=== PATIENT | female | born 1940 | race Two or more races ===

== ENCOUNTER → 2016-09-23 | Outpatient (CLI) | payer MEDICARE, OTHER ==
[2016-09-23 12:28] LABS: Basophils # (auto) 0 uL; Basophils % (auto) 0.7 % (0.0-2.0); DEFINITIVE VIEW TRANSMISSION; Eosinophils # (auto) 0 uL; Eosinophils % (auto) 1.6 % (0.0-7.0); Hematocrit 37.8 % (36.0-46.0); Hemoglobin 12.3 g/dL (12.2-16.2); Lymphocytes # (auto) 0.3 uL; Lymphocytes % (auto) 13.7 % (10.0-50.0); Mean Corpuscular Hemoglobin 25.8 pg (28.0-32.0); Mean Corpuscular Hgb Conc. 32.5 g/dL (32.0-36.0); Mean Corpuscular Volume 79.4 fL (80.0-100.0); Mean Platelet Volume 9.5 fL (7.4-10.4); Monocytes # (auto) 0.3 uL; Monocytes % (auto) 10.7 % (0.0-12.0); Neutrophils # (auto) 1.9 uL; Neutrophils % (auto) 73.3 % (37.0-80.0); Platelet Count (auto) 301 10^3/uL (140-450); Red Cell Distribution Width 15.2 % (11.6-16.0); White Blood Cell 2.5 10^3/uL (4.4-10.8)
[2016-09-23 12:45] LABS: Urine Bilirubin Negative (Negative); Urine Blood Negative /uL (Negative); Urine Color Yellow (Yellow); Urine Glucose Normal (Normal); Urine Ketone Negative (Negative); Urine Nitrite Negative (Negative); Urine Urobilinogen Normal (Negative)
[2016-09-23 12:53] LABS: Albumin 3.9 g/dL (3.4-5.0); BUN/Creatinine Ratio 15.9; Bilirubin, Direct 0.1 mg/dL (0-0.2); Bilirubin, Total 0.5 mg/dL (0.2-1.0); Calcium 8.9 mg/dL (8.5-10.1); Potassium 3.8 mmol/L (3.5-5.1); Total Protein 7.2 g/dL (6.4-8.2)
== END | disposition home or self-care (01) ==
LOC: LAB 08:58
PROVIDERS: ATTEND Internal Medicine Cardiovascular Disease
DX: I10 Essential (primary) hypertension (principal); E78.00 Pure hypercholesterolemia, unspecified; K74.1 Hepatic sclerosis; E11.9 Type 2 diabetes mellitus without complications; E03.9 Hypothyroidism, unspecified; D64.9 Anemia, unspecified; E55.9 Vitamin D deficiency, unspecified; N39.0 Urinary tract infection, site not specified
CPT/HCPCS: 36415; 80048; 80061; 80076; 81003; 82306; 83036; 84443; 85025

== ENCOUNTER → 2016-11-02 | Outpatient (CLI) | payer MEDICARE, OTHER ==
[~2016-11-02] MED LIST: SODIUM CHLORIDE 0.9% 1,000 ML IV ONE
[2016-11-02 13:40] VITALS: BP 133/72
[2016-11-02 16:33] LABS: Basophils # (auto) 0 uL; Basophils % (auto) 0.3 % (0.0-2.0); DEFINITIVE VIEW TRANSMISSION; Eosinophils # (auto) 0 uL; Eosinophils % (auto) 0.5 % (0.0-7.0); Hematocrit 43.6 % (36.0-46.0); Hemoglobin 14.2 g/dL (12.2-16.2); Lymphocytes # (auto) 0.5 uL; Lymphocytes % (auto) 11.6 % (10.0-50.0); Mean Corpuscular Hemoglobin 26.1 pg (28.0-32.0); Mean Corpuscular Hgb Conc. 32.5 g/dL (32.0-36.0); Mean Corpuscular Volume 80.3 fL (80.0-100.0); Mean Platelet Volume 9.4 fL (7.4-10.4); Monocytes # (auto) 0.5 uL; Monocytes % (auto) 11.9 % (0.0-12.0); Neutrophils # (auto) 3.3 uL; Neutrophils % (auto) 75.7 % (37.0-80.0); Platelet Count (auto) 321 10^3/uL (140-450); Red Cell Distribution Width 15.8 % (11.6-16.0); White Blood Cell 4.3 10^3/uL (4.4-10.8)
[2016-11-02 16:54] LABS: BUN/Creatinine Ratio 12.4; Calcium 9.1 mg/dL (8.5-10.1); Magnesium 2.1 mg/dL (1.6-2.6); Potassium 3.1 mmol/L (3.5-5.1)
== END | disposition home or self-care (01) ==
LOC: CHF HDHVI 09:48
PROVIDERS: ATTEND Internal Medicine Cardiovascular Disease
DX: I10 Essential (primary) hypertension (principal); E83.42 Hypomagnesemia; D64.9 Anemia, unspecified
CPT/HCPCS: 36415; 74020; 80048; 83735; 85025; 96360; 96361; G0463

== ENCOUNTER → 2017-04-14 | Outpatient (CLI) | payer MEDICARE, OTHER ==
[2017-04-14 12:46] LABS: BUN/Creatinine Ratio 15.2; Potassium 4.9 mmol/L (3.5-5.1)
== END | disposition home or self-care (01) ==
LOC: LAB 10:04
PROVIDERS: ATTEND Internal Medicine Cardiovascular Disease
DX: I10 Essential (primary) hypertension (principal)
CPT/HCPCS: 36415; 80048

== ENCOUNTER → 2017-06-03 | Outpatient (CLI) | payer MEDICARE, OTHER ==
[2017-06-03 13:35] LABS: Calcium 8.9 mg/dL (8.5-10.1)
== END | disposition home or self-care (01) ==
LOC: LAB 07:58
PROVIDERS: ATTEND Internal Medicine Cardiovascular Disease
DX: I10 Essential (primary) hypertension (principal)
CPT/HCPCS: 36415; 80048

== ENCOUNTER → 2017-09-27 | Outpatient (CLI) | payer MEDICARE, OTHER ==
[2017-09-27 12:43] LABS: Basophils # (auto) 0 uL; Basophils % (auto) 0.9 % (0.0-2.0); Eosinophils # (auto) 0.1 uL; Eosinophils % (auto) 1.5 % (0.0-7.0); Hematocrit 41.4 % (36.0-46.0); Hemoglobin 13.9 g/dL (12.2-16.2); Lymphocytes # (auto) 0.4 uL; Lymphocytes % (auto) 13.3 % (10.0-50.0); Mean Corpuscular Hemoglobin 29.4 pg (28.0-32.0); Mean Corpuscular Hgb Conc. 33.6 g/dL (32.0-36.0); Mean Corpuscular Volume 87.6 fL (80.0-100.0); Monocytes # (auto) 0.3 uL; Monocytes % (auto) 7.9 % (0.0-12.0); Neutrophils # (auto) 2.6 uL; Neutrophils % (auto) 76.4 % (37.0-80.0); Nucleated Red Blood Cells % 0.3 %; Platelet Count (auto) 232 10^3/uL (140-450); Red Blood Cells 4.73 10^6/uL (4.0-5.20); Red Cell Distribution Width 13.3 % (11.8-14.3); White Blood Cell 3.3 10^3/uL (4.4-10.8)
[2017-09-27 12:53] LABS: Albumin 4.1 g/dL (3.4-5.0); BUN/Creatinine Ratio 16.1; Bilirubin, Direct 0.1 mg/dL (0-0.2); Bilirubin, Total 0.7 mg/dL (0.2-1.0); Calcium 9.1 mg/dL (8.5-10.1); Free T4 (Free Thyroxine) 1.17 ng/dL (0.89-1.76); Potassium 3.9 mmol/L (3.5-5.1); Total Protein 7.6 g/dL (6.4-8.2)
[2017-09-27 16:34] LABS: Urine Blood Negative /uL (Negative); Urine Specific Gravity 1.007 (1.001-1.035)
== END | disposition home or self-care (01) ==
LOC: LAB 10:00
PROVIDERS: ATTEND Internal Medicine Cardiovascular Disease
DX: E78.00 Pure hypercholesterolemia, unspecified (principal); D64.9 Anemia, unspecified; E11.9 Type 2 diabetes mellitus without complications; E55.9 Vitamin D deficiency, unspecified; K74.1 Hepatic sclerosis; I10 Essential (primary) hypertension; N39.0 Urinary tract infection, site not specified; E27.0 Other adrenocortical overactivity; D51.9 Vitamin B12 deficiency anemia, unspecified; E03.9 Hypothyroidism, unspecified
CPT/HCPCS: 36415; 80048; 80061; 80076; 81003; 82306; 82607; 83036; 84439; 84443; 85025

== ENCOUNTER → 2017-09-29 | Outpatient (CLI) | payer MEDICARE, OTHER | END | disposition home or self-care (01) | LOC: CHF HDHVI 09:09 | PROVIDERS: ATTEND Internal Medicine Cardiovascular Disease | DX: E27.40 Unspecified adrenocortical insufficiency (principal) | CPT/HCPCS: 82024 ==

== ENCOUNTER → 2018-02-18 | Outpatient (CLI) | payer MEDICARE, BC | END | disposition home or self-care (01) | LOC: Rad HDHVI 13:53 | PROVIDERS: ATTEND Internal Medicine Cardiovascular Disease | DX: I08.3 Combined rheumatic disorders of mitral, aortic and tricuspid valves (principal); E78.5 Hyperlipidemia, unspecified; I11.0 Hypertensive heart disease with heart failure; I50.22 Chronic systolic (congestive) heart failure; E03.9 Hypothyroidism, unspecified; E11.9 Type 2 diabetes mellitus without complications; E78.00 Pure hypercholesterolemia, unspecified | CPT/HCPCS: 93306 ==

== ENCOUNTER → 2018-03-03 | Outpatient (CLI) | payer MEDICARE, BC ==
[~2018-03-03] VITALS: Ht 160 cm; Wt 74.8 kg
[~2018-03-03] MED LIST changes: +ADENOSINE 63 MG in GIVE UN-DILUTED 0 ML IV ONE; +ADENOSINE 90 MG/30 ML INJ IV ONE; -SODIUM CHLORIDE 0.9% 1,000 ML IV ONE
== END | disposition home or self-care (01) ==
LOC: Rad HDHVI 10:22
PROVIDERS: ATTEND Internal Medicine Cardiovascular Disease
DX: I11.0 Hypertensive heart disease with heart failure (principal); I50.22 Chronic systolic (congestive) heart failure; R06.02 Shortness of breath; E78.5 Hyperlipidemia, unspecified; R07.89 Other chest pain; E03.9 Hypothyroidism, unspecified; Z88.8 Allergy status to other drugs, medicaments and biological substances
CPT/HCPCS: 78452; 93005; 96374; 96375; A9500; J0153

== ENCOUNTER → 2019-04-17 | Outpatient (CLI) | payer MEDICARE, BC | END | disposition home or self-care (01) | LOC: Rad HDHVI 11:51 | PROVIDERS: ATTEND Internal Medicine | DX: R06.02 Shortness of breath (principal); I70.0 Atherosclerosis of aorta | CPT/HCPCS: 71046 ==

== ENCOUNTER → 2019-09-25 | Outpatient (CLI) | payer MEDICARE, BC ==
[2019-09-25 12:07] LABS: Basophils # (auto) 0 uL; Basophils % (auto) 1.2 % (0.0-2.0); Eosinophils # (auto) 0.1 uL; Eosinophils % (auto) 2.4 % (0.0-7.0); Hematocrit 43.6 % (36.0-46.0); Hemoglobin 14.6 g/dL (12.2-16.2); Lymphocytes # (auto) 0.5 uL; Lymphocytes % (auto) 17.4 % (10.0-50.0); Mean Corpuscular Hemoglobin 30.2 pg (28.0-32.0); Mean Corpuscular Hgb Conc. 33.5 g/dL (32.0-36.0); Monocytes # (auto) 0.3 uL; Monocytes % (auto) 8.5 % (0.0-12.0); Neutrophils # (auto) 2.2 uL; Neutrophils % (auto) 70.5 % (37.0-80.0); Nucleated Red Blood Cells % 0.1 %; Platelet Count (auto) 219 10^3/uL (140-450); Red Blood Cells 4.85 10^6/uL (4.0-5.20); Red Cell Distribution Width 13.8 % (11.8-14.3); White Blood Cell 3.1 10^3/uL (4.4-10.8)
[2019-09-25 12:10] LABS: Urine Blood Negative /uL (Negative); Urine Specific Gravity 1.015 (1.001-1.035)
[2019-09-25 12:13] LABS: Potassium 3.8 mmol/L (3.5-5.1)
[2019-09-25 12:22] LABS: Free T4 (Free Thyroxine) 1.17 ng/dL (0.89-1.76)
[2019-09-25 12:26] LABS: BUN/Creatinine Ratio 19.3; Bilirubin, Total 0.5 mg/dL (0.2-1.0); Calcium 9.4 mg/dL (8.5-10.1); Total Protein 7.7 g/dL (6.4-8.2)
== END | disposition home or self-care (01) ==
LOC: Rad HDHVI 07:58
PROVIDERS: ATTEND Internal Medicine Cardiovascular Disease
DX: I65.23 Occlusion and stenosis of bilateral carotid arteries (principal); I11.0 Hypertensive heart disease with heart failure; I50.9 Heart failure, unspecified; R07.89 Other chest pain; E03.9 Hypothyroidism, unspecified; K90.9 Intestinal malabsorption, unspecified; N39.0 Urinary tract infection, site not specified; D51.9 Vitamin B12 deficiency anemia, unspecified; Z79.899 Other long term (current) drug therapy
CPT/HCPCS: 36415; 80053; 80061; 81003; 82306; 82607; 83036; 84439; 84443; 85025; 87086; 93306; 93880

== ENCOUNTER → 2020-04-30 | Outpatient (CLI) | payer MEDICARE, BC ==
[2020-04-30 12:01] LABS: Urine Blood Negative /uL (Negative); Urine Specific Gravity 1.004 (1.001-1.035)
== END | disposition home or self-care (01) ==
LOC: LAB 10:32
PROVIDERS: ATTEND Internal Medicine Cardiovascular Disease
DX: N39.0 Urinary tract infection, site not specified (principal)
CPT/HCPCS: 81003; 87086

== ENCOUNTER → 2020-05-22 | Outpatient (CLI) | payer MEDICARE, BC ==
[2020-05-22 15:58] LABS: Urine Blood Negative /uL (Negative); Urine Specific Gravity 1.004 (1.001-1.035)
== END | disposition home or self-care (01) ==
LOC: CHF HDHVI 15:24
PROVIDERS: ATTEND Internal Medicine Cardiovascular Disease
DX: N39.0 Urinary tract infection, site not specified (principal)
CPT/HCPCS: 81003; 87086

== ENCOUNTER → 2021-01-08 | Outpatient (CLI) | payer MEDICARE, BC ==
[2021-01-08 15:18] LABS: Urine Blood Negative /uL (Negative); Urine Specific Gravity 1.007 (1.001-1.035)
[2021-01-08 15:26] LABS: Basophils # (auto) 0 10 ^3/uL (0-0.2); Basophils % (auto) 0.8 % (0.0-2.0); Eosinophils # (auto) 0.1 10 ^3/uL (0-0.8); Eosinophils % (auto) 1.6 % (0.0-7.0); Hematocrit 37.6 % (36.0-46.0); Lymphocytes # (auto) 0.6 10 ^3/uL (0.4-5.4); Lymphocytes % (auto) 14.1 % (10.0-50.0); Mean Corpuscular Hemoglobin 30.4 pg (28.0-32.0); Mean Corpuscular Hgb Conc. 34.6 g/dL (32.0-36.0); Mean Corpuscular Volume 87.9 fL (80.0-100.0); Monocytes # (auto) 0.4 10 ^3/uL (0-1.3); Monocytes % (auto) 8.8 % (0.0-12.0); Neutrophils # (auto) 3.3 10 ^3/uL (1.6-8.6); Neutrophils % (auto) 74.7 % (37.0-80.0); Nucleated Red Blood Cells % 0.1 %; Platelet Count (auto) 195 10^3/uL (140-450); Red Blood Cells 4.28 10^6/uL (4.0-5.20); White Blood Cell 4.3 10^3/uL (4.4-10.8)
[2021-01-08 15:28] LABS: Albumin 3.8 g/dL (3.4-5.0)
[2021-01-08 15:32] LABS: BUN/Creatinine Ratio 33.8; Bilirubin, Direct 0.1 mg/dL (0-0.2); Bilirubin, Total 0.3 mg/dL (0.2-1.0)
== END | disposition home or self-care (01) ==
LOC: LAB 11:25
PROVIDERS: ATTEND Internal Medicine Cardiovascular Disease
DX: D51.3 Other dietary vitamin B12 deficiency anemia (principal); E11.9 Type 2 diabetes mellitus without complications; E55.9 Vitamin D deficiency, unspecified; I10 Essential (primary) hypertension; D64.9 Anemia, unspecified; R00.2 Palpitations; R53.1 Weakness; R30.0 Dysuria
CPT/HCPCS: 36415; 80048; 80061; 80076; 81003; 82306; 83036; 84443; 85025

== ENCOUNTER → 2021-08-07 | Outpatient (CLI) | payer MEDICARE, BC | END | disposition home or self-care (01) | LOC: Rad HDHVI 10:39 | PROVIDERS: ATTEND Internal Medicine Cardiovascular Disease | DX: I08.3 Combined rheumatic disorders of mitral, aortic and tricuspid valves (principal); E78.00 Pure hypercholesterolemia, unspecified; R07.89 Other chest pain | CPT/HCPCS: 93306 ==

== ENCOUNTER → 2021-08-13 | Outpatient (CLI) | payer MEDICARE, BC | END | disposition home or self-care (01) | LOC: Rad HDHVI 11:18 | PROVIDERS: ATTEND Internal Medicine Cardiovascular Disease | DX: I65.21 Occlusion and stenosis of right carotid artery (principal); R00.2 Palpitations; E78.5 Hyperlipidemia, unspecified | CPT/HCPCS: 93880 ==

== ENCOUNTER → 2022-08-05 | Outpatient (CLI) | payer MEDICARE, BC ==
[2022-08-05 11:36] LABS: Urine Blood Negative /uL (Negative); Urine Specific Gravity 1.004 (1.001-1.035)
[2022-08-05 11:39] LABS: Basophils # (auto) 0 10 ^3/uL (0-0.2); Basophils % (auto) 0.8 % (0.0-2.0); Eosinophils # (auto) 0.1 10 ^3/uL (0-0.8); Hematocrit 42.3 % (36.0-46.0); Hemoglobin 13.8 g/dL (12.2-16.2); Lymphocytes # (auto) 0.6 10 ^3/uL (0.4-5.4); Lymphocytes % (auto) 17.4 % (10.0-50.0); Mean Corpuscular Hemoglobin 28.7 pg (28.0-32.0); Mean Corpuscular Hgb Conc. 32.6 g/dL (32.0-36.0); Monocytes # (auto) 0.3 10 ^3/uL (0-1.3); Monocytes % (auto) 9.5 % (0.0-12.0); Neutrophils # (auto) 2.4 10 ^3/uL (1.6-8.6); Neutrophils % (auto) 70.3 % (37.0-80.0); Nucleated Red Blood Cells % 0.1 %; Red Blood Cells 4.81 10^6/uL (4.0-5.20); Red Cell Distribution Width 14.3 % (11.8-14.3); White Blood Cell 3.5 10^3/uL (4.4-10.8)
[2022-08-05 12:05] LABS: Potassium 4.1 mmol/L (3.5-5.1)
[2022-08-05 12:17] LABS: Albumin 4.2 g/dL (3.4-5.0); BUN/Creatinine Ratio 12.1; Bilirubin, Total 0.6 mg/dL (0.2-1.0); Calcium 9.3 mg/dL (8.5-10.1)
[2022-08-05 13:36] LABS: Free T4 (Free Thyroxine) 1.05 ng/dL (0.89-1.76)
== END | disposition home or self-care (01) ==
LOC: LAB 08:20
PROVIDERS: ATTEND Internal Medicine Cardiovascular Disease
DX: I10 Essential (primary) hypertension (principal); E55.9 Vitamin D deficiency, unspecified
CPT/HCPCS: 36415; 80053; 80061; 81003; 82306; 82607; 83036; 84439; 84443; 85025

== ENCOUNTER → 2022-08-07 | Outpatient (CLI) | payer MEDICARE, BC | END | disposition home or self-care (01) | LOC: Rad HDHVI 09:52 | PROVIDERS: ATTEND Internal Medicine Cardiovascular Disease | DX: I08.0 Rheumatic disorders of both mitral and aortic valves (principal); R07.89 Other chest pain; R06.02 Shortness of breath | CPT/HCPCS: 93306 ==

== ENCOUNTER → 2022-10-28 | Outpatient (CLI) | payer MEDICARE, BC | END | disposition home or self-care (01) | LOC: Rad HDHVI 10:38 | PROVIDERS: ATTEND Internal Medicine Cardiovascular Disease | DX: I65.21 Occlusion and stenosis of right carotid artery (principal); R55 Syncope and collapse; I10 Essential (primary) hypertension | CPT/HCPCS: 93880 ==

== ENCOUNTER → 2023-09-20 | Outpatient (CLI) | payer MEDICARE, BC | END | disposition home or self-care (01) | LOC: Rad HDHVI 08:47 | PROVIDERS: ATTEND Internal Medicine Cardiovascular Disease | DX: I08.3 Combined rheumatic disorders of mitral, aortic and tricuspid valves (principal); R00.2 Palpitations | CPT/HCPCS: 93306 ==

== ENCOUNTER 2024-06-13 09:50 | Inpatient (IN) | payer MEDICARE, BC ==
[2024-06-12 13:12] LABS: Basophils # (auto) 0 10 ^3/uL (0-0.2); Basophils % (auto) 0.8 % (0.0-2.0); Eosinophils # (auto) 0.1 10 ^3/uL (0-0.8); Eosinophils % (auto) 1.3 % (0.0-7.0); Hematocrit 43.5 % (36.0-46.0); Hemoglobin 14.5 g/dL (12.2-16.2); Lymphocytes # (auto) 0.7 10 ^3/uL (0.4-5.4); Lymphocytes % (auto) 16.4 % (10.0-50.0); Mean Corpuscular Hemoglobin 30.3 pg (28.0-32.0); Mean Corpuscular Hgb Conc. 33.3 g/dL (32.0-36.0); Mean Corpuscular Volume 91.1 fL (80.0-100.0); Monocytes # (auto) 0.4 10 ^3/uL (0-1.3); Monocytes % (auto) 8.9 % (0.0-12.0); Neutrophils # (auto) 2.9 10 ^3/uL (1.6-8.6); Neutrophils % (auto) 72.6 % (37.0-80.0); Nucleated Red Blood Cells % 0.1 %; Platelet Count (auto) 205 10^3/uL (140-450); Red Blood Cells 4.77 10^6/uL (4.0-5.20)
[2024-06-12 13:29] LABS: INR 1.06 (0.9-1.15); Prothrombin Time 11.2 sec (9.3-11.8)
[2024-06-12 13:44] LABS: Anion Gap 7 (5-15); Carbon Dioxide 27 mmol/L (20-31); Chloride 103 mmol/L (98-107); Sodium 137 mmol/L (136-145)
[2024-06-12 13:50] LABS: BUN/Creatinine Ratio 17.2 (10.0-20.0); Blood Urea Nitrogen 15 mg/dL (9-23); Glucose 100 mg/dL (74-106)
[~2024-06-13] VITALS: Ht 160 cm; Wt 78.8 kg
[2024-06-13] VITALS (11 sets, daily range): BP systolic 122–144; BP diastolic 43–71; PULSE 60–66; RESP 12–22; TEMP 97.6–98; O2SAT 92–97
[~2024-06-13 09:50] MED LIST changes: +ACET500T58 PO; -ADENOSINE 63 MG in GIVE UN-DILUTED 0 ML IV ONE; -ADENOSINE 90 MG/30 ML INJ IV ONE; +ATEN-60 PO; +BIOT1CHW PO; +CETI10TA2 PO; +CRAN1CAP11 PO; +CYAN500T39 PO; +ERGO1CAP23 PO; +FURO20TA3 PO; +KRIL1CAP15 PO; +LISI40TA16 PO; +MAGN1TAB29 PO; +MULT-1146 PO; +MULT-688 PO; +OMEP20TA PO; +POM; +TRAM50TA2 PO
[2024-06-13] MEDS: MIDAZOLAM HCL 2MG/2ML 2ml VIAL (1mg/ml) ONE (11:55)
[2024-06-13] MEDS: fentaNYL CITRATE 100 MCG/2 ML VL ONE (11:55)
[2024-06-13] MEDS: VANCOMYCIN HCL 1000 MG VL ONE (11:55)
[2024-06-13] MEDS: LIDOCAINE 2%HCL (LOCAL ANESTH.) INJ 20ML MDV ONE (11:55)
[2024-06-13] MEDS: VANCOMYCIN 1GM/200ML PREMIX 200 ML IV ONE (11:56)
[2024-06-13] MEDS: FUROSEMIDE 20 MG/2 ML VIAL ONE ×2 (12:59→13:25)
[2024-06-13] MEDS: NITROGLYCERIN 0.4MG/DOSE SPRAY 4.9GM ONE (13:12)
[2024-06-13] MEDS: IODIXANOL 320MG/ML 100ML BTL IV ONE (13:13)
[2024-06-13] MEDS: ONDANSETRON HCL 4 MG/2 ML VIAL ONE (13:35)
[2024-06-13] MEDS: DOPamine 1600MCG/ML D5W 0 ML IV ONE (13:36)
--- NOTE | 2024-06-13 14:24 | DVH ---
CHEST RADIOGRAPH Indication:S/P PACEMAKER Technique: Single frontal view of the chest was obtained COMPARISON: None FINDINGS: Lines and Tubes: Left chest wall pacemaker Lungs: Clear Pleura: No effusion. No pneumothorax. Cardiomediastinal contours: Unremarkable Bones: Unremarkable IMPRESSION: No acute disease.
--- NOTE | 2024-06-13 14:41 | DVHHP ---
ADMIT DATE: 06/13/2024 HISTORY OF PRESENT ILLNESS: The patient is 84 years old with a history of sick sinus syndrome, greater than 2.5-second pauses, symptomatic. The patient is to undergo dual-chamber permanent pacemaker implantation. She needs a beta-eliseo because she has tachybrady episode as well, but without beta-eliseo, she gets into the rapid ventricular response, not atrial fibrillation, now to undergo dual-chamber permanent pacemaker. REVIEW OF SYSTEMS: NEUROLOGIC: The patient denies any history of CVA, no seizure disorder. No history of movement disorder. HEENT: No visual disturbances, no hearing deficits. GI: No history of dysphagia, diarrhea, constipation, irritable bowel syndrome or inflammatory bowel disease. No liver disease. She denies any history of any bleeding diathesis, such as hematemesis, hemoptysis, hematochezia or hematuria. No melena. LUNGS: Negative. No pneumonia. No COPD. No asthma. CARDIOVASCULAR: Regular rate. No history of any myocardial infarction or coronary artery disease. EXTREMITIES: Unremarkable. PHYSICAL EXAMINATION: VITAL SIGNS: Blood pressure, however, is elevated today, is 174/80, pulse of 70, O2 saturation 98% on room air. HEENT: Pupils are reactive. Funduscopic exam is benign. Sclerae anicteric. No exudates noted. Tympanic membranes are negative. Oral mucosa moist. Posterior pharynx without any exudate. NECK: Supple. No nuchal rigidity. No cervical adenopathy, no axillary adenopathy. Carotid pulses are 2+, symmetrical. No JVD appreciated. PULMONARY: Clear to auscultation. CARDIOVASCULAR: Regular rate. ABDOMEN: Soft, nontender, normal bowel sounds. NEUROLOGIC: The patient is intact. EXTREMITIES: 1+ edema. ASSESSMENT AND PLAN: Thus, the patient with sick sinus syndrome with pauses and syncope, now to undergo dual-chamber permanent pacemaker implantation. Further recommendations after the pacemaker. Carlos Eduardo Saenz MD SA/VEENA TID: [id number] RECEIPT: [id number]
[2024-06-13] MEDS: ACETAMINOPHEN 325 MG TAB PO PRN (14:45)
--- NOTE | 2024-06-13 15:23 | DVHOP ---
DATE OF SURGERY: 06/13/2024 PROCEDURE PERFORMED: Dual-chamber permanent pacemaker implantation with venography and conscious sedation given. The patient, during the course, received Zofran as well and 40 mg of Lasix because of marked elevation in blood pressure and because of sinus congestion requiring extensive backbleeding. With that, blood pressure improved and there was no backbleeding. There were no complications. The patient tolerated the procedure. Initially, when I stuck the subclavian vein, I hit the subclavian artery. Therefore, hemostasis had to be obtained. There was no hematoma. Blood pressure was monitored throughout the course and there was no significant drop in blood pressure. There was no respiratory distress as well. DESCRIPTION OF PROCEDURE: The patient was prepped and draped in a sterile condition. 1% Xylocaine used to anesthetize the left subclavicular region. Using a Cook needle, the left subclavian vein was engaged following venography. A guidewire was then appropriately positioned. Using using a 10 blade, linear incision was made. Using blunt dissection and electrocautery, pocket was then dissected out. Using 9-Cuban sheath, right ventricular active fixation lead then appropriately positioned. Using 7-Cuban sheath, right atrial active fixation lead then appropriately positioned. Threshold parameters were obtained. Lead was secured to the chest wall using 0 Ethibond. Generator was implanted. Pocket was irrigated using vancomycin and saline solution. Pocket was then closed using 3-0 Monoderm subcutaneous sutures followed by 3-0 Monoderm subcuticular sutures. There were no complications. The patient tolerated the procedure well. RESULTS: The patient had Biotronik MRI-compatible dual-chamber permanent pacemaker, Edora 8 DR-T, model number [id number], serial number [id number]. Right ventricular lead is Solia S53, model number [id number], serial number [id number]. Right atrial lead is Solia S45, model number [id number], serial number [id number]. Threshold parameters atrium, P-wave amplitude of 3.7 millivolts, threshold 0.6 volts at 0.4 milliseconds pulse duration, pacing impedance of 660 ohms. Right ventricular lead R-wave amplitude 11.1 millivolts, threshold of 0.5 volts at 0.4 milliseconds pulse duration, pacing impedance of 950 ohms. CONCLUSION: The patient has successful implantation of dual-chamber permanent pacemaker. Biotronik MRI-compatible system. We did not use a Solia lead S53, model number [id number], serial number [id number] because of the helix deployed before the appropriate location was obtained. Therefore, we felt that the lead may be damaged. Therefore, we elected not to use the lead. Carlos Eduardo Seanz MD SA/LUANA/SIDDHARTHA TID: [id number] RECEIPT: [id number]
[2024-06-13] MEDS: ceFAZolin 1GM/50ML 50 ML IV SCH (15:41)
--- NOTE | 2024-06-13 17:30 | DVHDS ---
DATE OF DISCHARGE: 06/13/2024 DISCHARGE DIAGNOSES: Sick sinus syndrome, AV conduction abnormality. The patient underwent successful dual chamber permanent pacemaker implantation. HOSPITAL COURSE: Clinically, the patient is stable. Continue all current medications, no changes are required. Follow up with me in 1 week. Stable at the time of discharge. Activity as instructed. We kept overnight because of the fact that the patient's blood pressure was markedly elevated during the course of the procedure, she became nauseated because of medications given and because initial puncture site to be actually hit the left subclavian artery. Therefore, we wanted to make sure there was no pneumohemothorax before discharging the patient and therefore, we observed her for 24 hours. She is stable at the time of discharge. DISPOSITION: Home. ACTIVITY: As instructed. DIET: Will be 2 gram sodium diet. Carlos Eduardo Saenz MD SA/ALKA TID: [id number] RECEIPT: [id number]
[2024-06-13] MEDS: ONDANSETRON HCL 4 MG/2 ML VIAL IV PRN (17:38)
[2024-06-13] MEDS: ATENOLOL 25 MG TAB PO SCH (21:18)
[2024-06-13] MEDS: VANCOMYCIN 1GM/200ML PREMIX 200 ML IV SCH (23:56)
--- NOTE | 2024-06-14 04:59 | DVH ---
CHEST RADIOGRAPH Indication:s/p PPI Technique: Single frontal view of the chest was obtained COMPARISON: XY CHEST PORTABLE on DOS: 06/13/24 FINDINGS: Lines and Tubes: Left chest wall pacemaker Lungs: Clear Pleura: No effusion. No pneumothorax. Cardiomediastinal contours: Unremarkable Bones: Unremarkable IMPRESSION: No acute disease.
[2024-06-14 05:00] VITALS: BP 137/48; PULSE 65; RESP 19; TEMP 98.4; O2SAT 94
[2024-06-14 08:00] VITALS: PULSE 63
[2024-06-14 09:00] VITALS: BP 145/63; PULSE 60; RESP 19; TEMP 98; O2SAT 95
[2024-06-14] MEDS: LISINOPRIL 20 MG TAB PO SCH (09:16)
[2024-06-14] MEDS: FUROSEMIDE 20 MG TAB PO SCH (09:16)
[2024-06-14 13:00] VITALS: BP 151/77; PULSE 59; RESP 19; TEMP 98.2; O2SAT 94
[2024-06-14 13:44] VITALS: BP 145/63; PULSE 60; TEMP 36.8
[2024-06-14] MEDS: traMADol HCL 50 MG TAB PO ONE (14:13)
--- NOTE | 2024-06-15 08:16 | ECG ---
[facility] Test Date: 2024-06-13 Test Time: 14:13:02 Pat Name: JULIETA ESPINOZA Department: Room: 0250T Gender: F Physical Therapist Clinic Director: BRENDA : 1940 Requested By: KEREN DHILLON Order Number: [id number] Reading MD: Measurements Intervals [place] Rate: 60 P: 0 MT: 0 QRS: 111 QRSD: 130 T: 8 QT: 486 QTc: 486 Interpretive Statements AV sequential or dual chamber electronic pacemaker Please click the below link to view image of tracing.
== END 2024-06-14 16:30 | disposition home or self-care (01) | DRG 243 ==
LOC: CATH 09:50 → TELE 13:43 → TELE-EAST 16:51
PROVIDERS: ADMIT Internal Medicine Cardiovascular Disease; ATTEND Internal Medicine Cardiovascular Disease
PROC: 0JH606Z Insertion of Pacemaker, Dual Chamber into Chest Subcutaneous Tissue and Fascia, Open Approach (ICD-10-PCS; principal; 2024-06-13)
PROC: 02H63JZ Insertion of Pacemaker Lead into Right Atrium, Percutaneous Approach (ICD-10-PCS; 2024-06-13)
PROC: 02HK3JZ Insertion of Pacemaker Lead into Right Ventricle, Percutaneous Approach (ICD-10-PCS; 2024-06-13)
PROC: B5171ZZ Fluoroscopy of Left Subclavian Vein using Low Osmolar Contrast (ICD-10-PCS; 2024-06-13)
DX: I49.5 Sick sinus syndrome (principal); I45.89 Other specified conduction disorders; Z79.899 Other long term (current) drug therapy
CPT/HCPCS: 33208; 36012; 36415; 71045; 71046; 80048; 85025; 85610; 85730; 93005; 99152; G0378; G0463; J2250; J2405; Q9967

== ENCOUNTER → 2024-08-01 | Outpatient (CLI) | payer MEDICARE, BC | END | disposition home or self-care (01) | LOC: Rad HDHVI 09:45 | PROVIDERS: ATTEND Internal Medicine Cardiovascular Disease | DX: I11.0 Hypertensive heart disease with heart failure (principal); I50.23 Acute on chronic systolic (congestive) heart failure | CPT/HCPCS: 93306 ==

== ENCOUNTER → 2025-03-02 | Outpatient (CLI) | payer MEDICARE, BC | END | disposition home or self-care (01) | LOC: Rad HDHVI 12:43 | PROVIDERS: ATTEND Internal Medicine Cardiovascular Disease | DX: I08.0 Rheumatic disorders of both mitral and aortic valves (principal); R06.02 Shortness of breath | CPT/HCPCS: 93306 ==

== ENCOUNTER 2025-03-07 09:19 | Outpatient (CLI) | payer MEDICARE, BC ==
[~2025-03-07] VITALS: Ht 160 cm; Wt 77.1 kg
== END 2025-03-07 17:00 | disposition home or self-care (01) ==
LOC: Rad HDHVI 09:19
PROVIDERS: ATTEND Internal Medicine Cardiovascular Disease
DX: I49.1 Atrial premature depolarization (principal); I49.3 Ventricular premature depolarization; R00.0 Tachycardia, unspecified; R07.89 Other chest pain; R00.2 Palpitations; I49.5 Sick sinus syndrome; I11.0 Hypertensive heart disease with heart failure; I50.23 Acute on chronic systolic (congestive) heart failure; I35.0 Nonrheumatic aortic (valve) stenosis; Z95.0 Presence of cardiac pacemaker; Z82.49 Family history of ischemic heart disease and other diseases of the circulatory system
CPT/HCPCS: 78452; 93017; A9500; 96374

== ENCOUNTER 2025-04-16 09:49 | Outpatient (CLI) | payer MEDICARE, BC ==
[2025-04-16 09:58] VITALS: BP 177/75; PULSE 63; RESP 16; O2SAT 97
[2025-04-16 10:12] VITALS: BP 165/71; PULSE 61; RESP 16; O2SAT 97
[2025-04-16] MEDS ORDERED: PROBCAP38 OR (11:21)
== END 2025-04-16 17:00 | disposition home or self-care (01) ==
LOC: CHF HDHVI 09:49
PROVIDERS: ATTEND Internal Medicine Cardiovascular Disease
DX: Z01.810 Encounter for preprocedural cardiovascular examination (principal); I35.0 Nonrheumatic aortic (valve) stenosis; I35.1 Nonrheumatic aortic (valve) insufficiency; I10 Essential (primary) hypertension
CPT/HCPCS: 93005; G0463; 36415; 80048; 85025; 85610; 85730

== ENCOUNTER 2025-04-19 06:54 | Day surgery (SDC) | payer MEDICARE, BC ==
[2025-04-16 13:43] LABS: Hematocrit 41.0 % (36.0-46.0); Hemoglobin 14.0 g/dL (12.2-16.2); Mean Corpuscular Hemoglobin 30.2 pg (28.0-32.0); Mean Corpuscular Volume 88.4 fL (80.0-100.0); Nucleated Red Blood Cells % 0.1 %
[2025-04-16 13:50] LABS: INR 1.03 (0.9-1.15); Partial Thromboplastin Time 33.8 SEC (24.5-34.5); Prothrombin Time 10.9 sec (9.3-11.8)
[2025-04-16 14:11] LABS: Anion Gap 12 (5-15); Calcium 9.6 mg/dL (8.7-10.4); Carbon Dioxide 28 mmol/L (20-31); Chloride 98 mmol/L (98-107); Potassium 4.0 mmol/L (3.5-5.1); Sodium 138 mmol/L (136-145)
[2025-04-16 14:17] LABS: BUN/Creatinine Ratio 20.5 (10.0-20.0); Blood Urea Nitrogen 18 mg/dL (9-23); Glucose 91 mg/dL (74-106)
[2025-04-19] VITALS (8 sets, daily range): BP systolic 114–147; BP diastolic 57–66; PULSE 60–68; RESP 12–20; O2SAT 92–98
[~2025-04-19] VITALS: Ht 160 cm; Wt 77.1 kg
[~2025-04-19 06:54] MED LIST changes: -POM; +PROBCAP38 OR
[2025-04-19] MEDS ORDERED: IODIXANOL 320MG/ML 100ML BTL IV ONE (07:31)
[2025-04-19] MEDS ORDERED: HEPARIN IN NS 1000Units/500mL 1,500 ML ONE (07:31)
[2025-04-19] MEDS ORDERED: fentaNYL CITRATE 100 MCG/2 ML VL ONE (08:52)
[2025-04-19] MEDS ORDERED: ANGIOMAX 250 MG VIAL IV ONE (08:52)
[2025-04-19] MEDS ORDERED: MIDAZOLAM HCL 2MG/2ML 2ml VIAL (1mg/ml) ONE (08:52)
[2025-04-19] MEDS ORDERED: SODIUM CHL 0.9% 0 ML ONE (08:53)
[2025-04-19] MEDS ORDERED: LIDOCAINE 2%HCL (LOCAL ANESTH.) INJ 20ML MDV ONE (08:53)
[2025-04-19] MEDS ORDERED: ONDANSETRON HCL 4 MG/2 ML VIAL ONE (09:00)
[2025-04-19] MEDS ORDERED: NITROGLYCERIN 0.4 MG SL TAB SL ONE (09:37)
--- NOTE | 2025-04-19 10:07 | DVHDS ---
DATE OF DISCHARGE: 04/19/2025 DISCHARGE DIAGNOSES: * The patient with critical aortic valve stenosis. * Normal coronary anatomy. * Normal left ventricular ejection fraction. HOSPITAL COURSE: The patient now underwent right heart catheterization and left heart catheterization, shows the patient's aortic valve area of 0.52 with a cardiac index of 1.9 liters per minute per meter squared. The patient at this time will be referred for possible aortic valve replacement, stable at the time of discharge. DISPOSITION: Home. ACTIVITY: As instructed. The patient's coronary anatomy was within normal limits and no flow restrictive lesion. Left ventricular function is 60%. Carlos Eduardo Saenz MD SA/EKT TID: [id number] RECEIPT: [id number]
--- NOTE | 2025-04-19 10:10 | DVHPN ---
DATE: 04/19/2025 PROCEDURES PERFORMED: Selective left and right coronary angiography, ventriculogram, right heart catheterization, [place] catheterization for conscious sedation PROCEDURE: The patient was prepped and draped in sterile condition. Xylocaine 1% was used to anesthetize the right groin. Using Cook needle, the right femoral artery was engaged. Using Seldinger technique, a 6-Mexican sheath was placed in the right femoral artery. Similarly, a 6-Mexican sheath was introduced into the right femoral vein. Using a 6-Mexican balloon-tipped thermodilutional catheter, right-sided pressure tracings and cardiac output was performed. Using 6-Mexican JL4 catheter and 6-Mexican JR4 catheter, selective left and right coronary angiography was performed. Using 6-Mexican pigtail catheter, ventriculogram was done. Total contrast used was 60 mL of Optiray. Total fluoroscopy time was 3 minutes. RESULTS: Right heart catheterization. [place] reading revealed RA pressure of 5, RV pressure of 28/5, PA pressure of 28/16, and capillary wedge pressure of 16-18 mmHg. Left ventricular end-diastolic pressure was 18 mmHg. Left ventricular function, ejection fraction was around 60%. Selective left and right coronary angiography revealed: * Left main within normal limits. * Left anterior descending artery without any flow restrictive lesion. * Circumflex without any flow restrictive lesion. * Right coronary artery, large dominant vessel without any flow restrictive lesions. CONCLUSION: Thus, the patient's calculated aortic valve area of 0.52 cm2 with a mean gradient of 48 mmHg with a cardiac output of 3.57 and a cardiac index of 1.98. Carlos Eduardo Saenz MD SA/AUBREY TID: [id number] RECEIPT: [id number]
--- NOTE | 2025-04-19 10:10 | DVHHP ---
ADMIT DATE: 04/19/2025 HISTORY OF PRESENT ILLNESS: The patient who is 85 years old with history of shortness of breath, dyspnea on exertion. A 2D echocardiography showed severe aortic valve stenosis with aortic valve area calculated to be less than 0.7 cm2. Because of the above presentation, it was felt that the patient should undergo coronary angiography. Risks and benefits were explained to the patient. The patient understands and agrees. PAST MEDICAL HISTORY: Significant for hypertension, hyperlipidemia, metabolic syndrome. REVIEW OF SYSTEMS: Denies any syncopal episodes. No melena or hematochezia. No hematemesis or hemoptysis. No history of seizure disorder. No history of CVA. No history of any bleeding diathesis. Denies any recent trauma. No fever. No chills. No hematuria. PHYSICAL EXAMINATION: VITAL SIGNS: Blood pressure is 180/74, pulse of 70, O2 saturation 94% on room air. HEENT: Pupils are reactive. Funduscopic exam shows no AV nicking, no exudates, no papilledema. Oral mucosa moist. Posterior pharynx without any exudate. NECK: No JVD appreciated. Carotid pulses are 1+ with diminished upstroke noted bilaterally. No carotid bruits are appreciated. No cervical adenopathy. No supraclavicular adenopathy. PULMONARY: Clear to auscultation in all lung [place]. Tympanic to percussion. No egophony. No wheezing. No rhonchi. CARDIOVASCULAR: Regular rate. There is a 2/6 systolic crescendo-decrescendo murmur along the left sternal border radiating to the second right intercostal space. There is intermittent S4 noted. ABDOMEN: Soft, nontender. Normal bowel sounds. Stool guaiac is negative. Liver approximately 5 cm by percussion. No epigastric tenderness. No suprapubic tenderness. No CVA tenderness. EXTREMITIES: 2+ pulses bilaterally. NEUROLOGIC: The patient is intact. ASSESSMENT AND PLAN: Thus, the patient has aortic valve stenosis, now to undergo left and right heart catheterization to define coronary anatomy as well as to recalculate the patient's aortic valve area. I will make further recommendations after the above tests are completed. Carlos Eduardo Saenz MD SA/TONY TID: [id number] RECEIPT: [id number]
== END 2025-04-19 12:46 | disposition home or self-care (01) ==
LOC: CATH 06:54
PROVIDERS: ATTEND Internal Medicine Cardiovascular Disease
DX: R06.02 Shortness of breath (principal); I10 Essential (primary) hypertension; E78.5 Hyperlipidemia, unspecified; E88.810 Metabolic syndrome; F41.9 Anxiety disorder, unspecified; Z88.0 Allergy status to penicillin; Z88.2 Allergy status to sulfonamides; Z88.8 Allergy status to other drugs, medicaments and biological substances; Z79.899 Other long term (current) drug therapy; Z87.891 Personal history of nicotine dependence
CPT/HCPCS: 36415; 80048; 85025; 85610; 85730; 93460; C1760; C1769; C1894; J1644; J2250; J2405; J3010; J7030; Q9967; 99152; 99153